=== PATIENT | female | born 1955 | race African-American/Black ===

== ENCOUNTER 2019-03-14 15:46 | Inpatient (IN) | payer OTHER ==
[2019-03-14 19:21] VITALS: BMI 20.7
--- NOTE | 2019-03-14 21:31 | HP ---
CIWA Score Nausea/Vomitin Muscle Tremors: 3 Anxiety: 3 Agitation: 3 Paroxysmal Sweats: 2 Orientation: 0-Oriented Tacttile Disturbances: 0-None Auditory Disturbances: 0-None Visual Disturbances: 0-None Headache: 3-Moderate CIWA-Ar Total Score: 16 - Admission Criteria OASAS Guidelines: Admission for Medically Managed Detox: Requires at least one of the followin. CIWA greater than 12 2. Seizures within the past 24 hours 3. Delirium tremens within the past 24 hours 4. Hallucinations within the past 24 hours 5. Acute intervention needed for co occurring medical disorder 6. Acute intervention needed for co occurring psychiatric disorder 7. Severe withdrawal that cannot be handled at a lower level of care (continued vomiting, continued diarrhea, abnormal vital signs) requiring intravenous medication and/or fluids 8. Admission ROS [facility] - [facility] Chief Complaint: Alcohol withdrawal symptoms Allergies/Adverse Reactions: Allergies Allergy/AdvReac Type Severity Reaction Status Date / Time No Known Allergies Allergy Verified 03/14/19 19:02 History of Present Illness: 63 years old female with a long history of alcohol dependence is seeking admission to detox. Patient reports last detox in 2012 and reports insignificant period of sobriety. She has history of Asthma, HIV +, anemia, Hep. C (currently on treatment) and asthma. She reports relapsing after a of a loved one. Denies suicidal ideation at this time. Exam Limitations: No Limitations - Ebola screening Have you traveled outside of the country in the last 21 days: No Have you had contact with anyone from an Ebola affected area: No Do you have a fever: No - Review of Systems Constitutional: Chills, Loss of Appetite, Night Sweats EENT: reports: No Symptoms Reported Respiratory: reports: No Symptoms reported Cardiac: reports: No Symptoms Reported GI: reports: Poor Appetite, Poor Fluid Intake, Abdominal cramping : reports: No Symptoms Reported Musculoskeletal: reports: Back Pain Integumentary: reports: Dryness, Flushing Neuro: reports: Headache, Tremors Endocrine: reports: No Symptoms Reported Hematology: reports: No Symptoms Reported Psychiatric: reports: Anxious, Depressed Other Systems: Reviewed and Negative Patient History - Patient Medical History Hx Anemia: Yes (WHEN YOUNGER, BUT NOT RECENTLY) Hx Asthma: Yes (Albuterol, Spiriva) Hx Chronic Obstructive Pulmonary Disease (COPD): No Hx Cancer: No Hx Cardiac Disorders: No Hx Congestive Heart Failure: No Hx Hypertension: No Hx Hypercholesterolemia: No HX Cerebrovascular Accident: No Hx Seizures: No Hx Diabetes: No Hx Gastrointestinal Disorders: No Hx Liver Disease: No Hx Genitourinary Disorders: No Hx Sexually Transmitted Disorders: No Hx Renal Disease (ESRD): No Hx Thyroid Disease: No Hx Human Immunodeficiency Virus (HIV): Yes (SINCE 1996--ON ANTIRETROVIRAL DRUGS - SYMTUZA) Hx Hepatitis C: Yes Hx Depression: Yes Hx Suicide Attempt: No (dENIES SUICIDAL IDEATION AT THIS TIME) Hx Bipolar Disorder: Yes ([place]) Hx Schizophrenia: No - Patient Surgical History Past Surgical History: Yes Hx Section: Yes (X2) Other Surgical History: 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-- Anesthesia Reaction: No - PPD History Previous Implant?: Yes Documented Results: Negative w/o proof Implanted On Prior [facility] Admission?: Yes Date: 05/03/13 PPD to be Administered?: Yes - Reproductive History Patient is a Female of Child Bearing Age (11 -55 yrs old): No Last Menstrual Period: 09/15/01 - Smoking Cessation Smoking history: Current every day smoker Have you smoked in the past 12 months: Yes Aproximately how many cigarettes per day: 20 Hx Chewing Tobacco Use: No Initiated information on smoking cessation: Yes 'Breaking Loose' booklet given: 03/14/19 - Substances abused Alcohol Substance route: Oral Amount used: 1 pack of 16oz beer ( 6 cans 0 Age of first use: 44 Date of last use: 03/14/19 Crack Substance route: Smoking Frequency: Daily Amount used: 2 eight balls ($100) Age of first use: 62 Date of last use: 03/14/19 Family Disease History - Family Disease History Family Disease History: CA: Mother (AND AUNT), Brother, Sister Admission Physical Exam S - Vital Signs Vital Signs: Vital Signs - 24 hr 03/14/19 19:09 Temperature 98.1 F Pulse Rate 80 Respiratory 16 Rate Blood Pressure 111/66 Cleared for Admission S - Detox or Rehab [facility] Level of Care: Medically Managed Detox Regimen/Protocol: Librium Breathalyzer - Breathalyzer Breathalyzer: 0 Urine Drug Screen - Test Device Lot number: [id number] Expiration date: 12/13/20 - Control Is test valid?: Yes - Results Drug screen NEGATIVE: No Urine drug screen results: [facility]-Coc[facility] Inpatient Rehab Admission - Rehab Decision to Admit Inpatient rehab admission?: No
[2019-03-14] MEDS ORDERED: BISMUTH SUBSALICYLATE 524 MG/30 ML UD PO PRN (21:44)
[2019-03-14] MEDS ORDERED: MENTHOL/PHENOL 1 EACH UD MM PRN (21:44)
[2019-03-14] MEDS ORDERED: IBUPROFEN 400 MG TABLET (FP) PO PRN (21:44)
[2019-03-14] MEDS ORDERED: NICOTINE POLACRILEX 2 MG GUM BUC PRN (21:44)
[2019-03-14] MEDS ORDERED: METHOCARBAMOL 500 MG TABLET PO PRN (21:44)
[2019-03-14] MEDS ORDERED: ACETAMINOPHEN 325 MG TABLET (FP) PO PRN ×2 (21:44)
[2019-03-14] MEDS ORDERED: MAGNESIUM HYDROX 2400MG/30ML ORAL SUSPENSION 30 ML CUP PO PRN (21:44)
[2019-03-14] MEDS ORDERED: MELATONIN 5 MG TABLETS PO PRN (21:44)
[2019-03-14] MEDS ORDERED: hydrOXYzine PAMOATE 25 MG CAPSULE (FP) PO PRN (21:44)
[2019-03-14] MEDS ORDERED: chlordiazePOXIDE HCL 25 MG CAPSULE PO PRN (21:44)
[2019-03-14] MEDS ORDERED: MAGNESIUM CITRATE 300 ML BOTTLE PO PRN (21:44)
[2019-03-14] MEDS ORDERED: MAG HYDROX/AL HYDROX/SIMETH 30 ML UNIT-DOSE CUP PO PRN (21:44)
[2019-03-14] MEDS ORDERED: ALBUTEROL SO4 8 GM HFA INHALER IH PRN (21:48)
[2019-03-14] MEDS ORDERED: THIAMINE HCL 100 MG TABLET (FP) PO SCH (22:00)
[2019-03-14] MEDS: chlordiazePOXIDE HCL 25 MG CAPSULE PO SCH (22:58)
[2019-03-15 06:00] VITALS: BP 111/64; PULSE 66; TEMP 97.8
[2019-03-15] MEDS: chlordiazePOXIDE HCL 25 MG CAPSULE PO SCH (06:44)
[2019-03-15] MEDS ORDERED: ALBUTEROL SO4 0.083% IH SOL 2.5 MG/3 ML VIAL.NEB. NEB ONE ×2 (07:04→07:08)
[2019-03-15] MEDS ORDERED: ALBUTEROL SO4 2.5/IPRATROPIUM 0.5 INH SOL 3 ML VIAL.NEB. NEB PRN (07:19)
--- NOTE | 2019-03-15 08:08 | EKG ---
Test Reason : Blood Pressure : / mmHG Vent. Rate : 066 BPM Atrial Rate : 066 BPM P-R Int : 194 ms QRS Dur : 076 ms QT Int : 420 ms P-R-T Axes : 046 076 086 degrees QTc Int : 440 ms NORMAL SINUS RHYTHM NORMAL ECG NO PREVIOUS ECGS AVAILABLE Confirmed by VITO POP, XOCHITL ([id number]) on 03/15/2019 8:08:11 AM Referred By: MICHAEL Confirmed By:XOCHITL PADRON MD
[2019-03-15] MEDS ORDERED: PRENATAL VITAMINS W/ FOLIC ACID TABLET (FP) PO SCH (10:00)
[2019-03-15] MEDS ORDERED: NICOTINE 21 MG/24 HOURS TOPICAL PATCH TD SCH (10:00)
[2019-03-15] MEDS ORDERED: SYMTUZA PO SCH (10:00)
--- NOTE | 2019-03-15 10:52 | DS ---
[facility] Detox Discharge Summary Admission Date: 03/14/19 Discharge Date: 03/15/19 - History Present History: Alcohol Dependence Additional Comments: 63 years old female admitted on 03/14/19 for acute alcohol withdrawal sx management insists to leave the detox that "I am here for rehab" patient demands to be transferred to rehab "I do not have alcohol problem" reported using cocaine and crack patient is alert oriented x 3 denies dizziness no shortness of breath patient prefers to go to "[facility]" today Pertinent Past History: encourage the patient return to infectious disease specialist for medical and mental issues - Physical Exam Results Vital Signs: Vital Signs Temperature 97.8 F 03/15/19 05:59 Pulse Rate 66 03/15/19 05:59 Respiratory Rate 18 03/15/19 06:30 Blood Pressure 111/64 03/15/19 05:59 O2 Sat by Pulse Oximetry (%) Pertinent Admission Physical Exam Findings: alcohol withdrawal sx lab not available at this time - Treatment Hospital Course: Detox Protocol Followed, Detoxed Safely, Responded well, Discharged Condition Good, Rehab Referral Accepted Patient has Accepted a Rehab Referral to: "[facility]" - Medication Discharge Medications: Ambulatory Orders Divalproex [Depakote -] 250 mg PO BID #60 tablet.ec 05/26/13 Albuterol Sulfate [Proair Respiclick] 90 mcg IH BID 03/14/19 Symtuza [phone] mg Tab 800 mg PO DAILY 03/14/19 Tiotropium Howe [Spiriva] 18 mcg PO BID 03/14/19 - Diagnosis (1) HIV (human immunodeficiency virus infection) Current Visit: Yes Status: Chronic Qualifiers: HIV symptom status: asymptomatic Qualified Code(s): Z21 - Asymptomatic human immunodeficiency virus [HIV] infection status (2) Alcohol dependence with uncomplicated withdrawal Current Visit: Yes Status: Acute (3) Asthma Current Visit: Yes Status: Chronic (4) Hepatitis C carrier Current Visit: Yes Status: Chronic - AMA Did Patient Leave Against Medical Advice: Yes
[2019-03-16] MEDS ORDERED: chlordiazePOXIDE HCL 25 MG CAPSULE PO SCH (05:00)
[2019-03-17] MEDS ORDERED: chlordiazePOXIDE HCL 10 MG CAPSULE PO PRN
[2019-03-17] MEDS ORDERED: chlordiazePOXIDE HCL 10 MG CAPSULE PO SCH (05:00)
[2019-03-18] MEDS ORDERED: chlordiazePOXIDE HCL 10 MG CAPSULE PO SCH (05:00)
[2019-03-19] MEDS ORDERED: chlordiazePOXIDE HCL 10 MG CAPSULE PO ONE (05:00)
== END 2019-03-15 09:07 | disposition left against medical advice (07) | DRG 770 ==
LOC: YASAS 15:46 → Y3N 21:58
PROVIDERS: ADMIT Surgery; ATTEND Surgery
PROC: HZ2ZZZZ Detoxification Services for Substance Abuse Treatment (ICD-10-PCS; principal; 2019-03-14)
DX: F10.230 Alcohol dependence with withdrawal, uncomplicated (principal); F14.20 Cocaine dependence, uncomplicated; F17.210 Nicotine dependence, cigarettes, uncomplicated; Z21 Asymptomatic human immunodeficiency virus [HIV] infection status; J45.909 Unspecified asthma, uncomplicated; B18.2 Chronic viral hepatitis C
CPT/HCPCS: 93005; 93010